=== PATIENT | male | born 1975 | race Caucasian/White ===

== ENCOUNTER 2017-03-30 21:23 | Emergency (ER) | payer OTHER ==
--- NOTE | 2017-03-30 21:55 | ED Physician Documentation ---
PD HPI BACK PAIN - Stated complaint Stated Complaint: BACK PX - Chief complaint Chief Complaint: Cardiac - History obtained from History obtained from: Patient - History of Present Illness Timing - onset: How many hours ago (2), Today Timing - duration: Minutes (about 60 minutes of pain, improved after awhile enroute here.) Timing - details: Abrupt onset, Now resolved, Constant Location: Upper, Right (he was sitting at desk typing on computer and had abrupt onset of severe tightness feeling in upper right back into right chest area, with feeling of radiation to right neck. [place] some lightheaded. Pain not pleuritic but he did feel that he was some short of breath.) Quality: Pain, Spasm, Sharp Associated symptoms: No: Fever, Weakness, Numbness, Incontinent of urine Improves with: No: Rest Worsened by: No: Movement, Palpation Contributing factors: No: Lifting, Twisting, Trauma Similar symptoms before: Has not had sx before Recently seen: Not recently seen Review of Systems Constitutional: denies: Fever, Chills Nose: denies: Rhinorrhea / runny nose, Congestion Throat: denies: Sore throat Respiratory: denies: Cough, Wheezing GI: denies: Abdominal Pain, Nausea, Vomiting, Diarrhea Skin: denies: Rash, Lesions Neurologic: reports: Near syncope. denies: Generalized weakness, Focal weakness , Numbness, Altered mental status, Headache Psychiatric: denies: Anxiety Endocrine: denies: Weight loss, Easy bruising / bleeding PD PAST MEDICAL HISTORY - Past Medical History Past Medical History: Yes Cardiovascular: Hypertension Respiratory: Sleep apnea Neuro: None Endocrine/Autoimmune: None GI: None : None HEENT: None Psych: None Musculoskeletal: None Derm: None - Past Surgical History Past Surgical History: No General: Other - Present Medications Home Medications: Ambulatory Orders Medication Instructions Recorded Confirmed Lisinopril/Hydrochlorothiazide 1 tab PO DAILY 03/30/17 03/30/17 [Lisinopril-Hctz 20-12.5 mg Tab] - Allergies Allergies/Adverse Reactions: Allergies Allergy/AdvReac Type Severity Reaction Status Date / Time No Known Drug Allergies Allergy Verified 03/30/17 21:29 - Social History Does the pt smoke?: Yes Smoking Status: Current every day smoker Does the pt drink ETOH?: Yes Does the pt have substance abuse?: No - Family History Family history: denies: Venous thromboembolism, Aortic aneursym, Aortic dissection - Immunizations Immunizations are current?: Yes - POLST Patient has POLST: No PD ED PE NORMAL - Vitals Vital signs reviewed: Yes - General General: Alert and oriented X 3, No acute distress, Well developed/nourished - HEENT HEENT: Ears normal, Pharynx benign - Neck Neck: Supple, no meningeal sign, No adenopathy - Cardiac Cardiac: RRR, No murmur - Respiratory Respiratory: Clear bilaterally - Abdomen Abdomen: Normal bowel sounds, Soft, Non tender, Non distended - Back Back: No CVA TTP - Derm Derm: Normal color, Warm and dry, No rash - Extremities Extremities: No deformity, No tenderness to palpate - Neuro Neuro: Alert and oriented X 3, rn assessment 2-12 intact, No motor deficit, No sensory deficit, Normal speech - Psych Psych: Normal mood, Normal affect Results - Vitals Vitals: Vital Signs - 24 hr 03/30/17 03/30/17 03/30/17 21:27 22:25 23:35 Temperature 36.7 C Heart Rate 89 82 75 Respiratory 94 H 16 16 Rate Blood Pressure 118/81 H 127/81 H 131/75 H O2 Saturation 97 97 96 Oxygen O2 Source Room air - EKG (time done) 21:42 Rate: Rate (enter#) (82) Rhythm: NSR [place]: Normal Intervals: Normal [place] QRS: Normal Ischemia: Normal ST segments. No: ST elevation c/w ischemia, ST depression Compare to prior EKG: Old EKG unavailable - Labs Labs: Laboratory Tests 03/30/17 03/30/17 03/30/17 22:40 22:40 22:40 WBC 7.6 RBC 5.22 Hgb 15.5 Hct 45.1 MCV 86.4 MCH 29.6 MCHC 34.3 RDW 12.9 Plt Count 224 MPV 8.2 Neut # 3.8 Lymph # 2.9 [place] # 0.6 Eos # 0.1 Baso # 0.1 Absolute Nucleated RBC 0.00 Nucleated RBC % 0.0 Sodium 135 Potassium 3.4 L Chloride 99 L Carbon Dioxide 26 Anion Gap 10.0 BUN 19 Creatinine 1.0 Estimated GFR (MDRD) 83 L Glucose 95 Calcium 9.4 Total Bilirubin 0.5 AST 39 ALT 47 Alkaline Phosphatase 51 Troponin I < 0.04 Total Protein 7.3 Albumin 4.6 Globulin 2.7 Albumin/Globulin Ratio 1.7 Lipase 33 - Rads (name of study) chest angio for aorta Radiology: Prelim report reviewed, Final report received (normal exam; no aortic process. ) PD MEDICAL DECISION MAKING - ED course Complexity details: reviewed results, considered differential (consider significant processes given the degree of pain at the time, though not hurting now: DC, PE, Aortic dissection, PTX, GB problem. Also then consider muscle spasm , esophageal spasm, biliar colic as things that will not show on tests. ), d/w patient Departure - Departure Disposition: Home, Self Care Clinical Impression: Acute thoracic back pain Qualifiers: Back pain laterality: right Qualified Code(s): M54.6 - Pain in thoracic spine Chest pain Qualifiers: Chest pain type: other chest pain Qualified Code(s): R07.89 - Other chest pain Clinical Impression: (Ruled Out): Myocardial infarction, Aortic dissection Condition: Stable Record reviewed to determine appropriate education?: Yes Instructions: ED Chest Pain Atypical Unkn Cause Follow-Up: THONG Hauser [Provider Group] Comments: Your tests here are normal which excludes significant processes such as heart attack, blood clots, aortic process, collapsed lung. I do not know the cause of the pain that you had. Consider muscular spasm among other things. Could also correspond with esophageal spasm or gallbladder spasm though does not quite sound like those. With the tests here, the serious causes are excluded. Use Tylenol or ibuprofen if recurrent episodes. Follow-up with your primary care if recurrent episodes as well.
[2017-03-30] MEDS ORDERED: SODIUM CHLORIDE 0.9% 1,000 ML IV ONE (22:30)
[2017-03-30] MEDS ORDERED: IOPAMIDOL-300 100 ML VIAL ONE (22:40)
[2017-03-30 23:10] LABS: BASOPHILS # (AUTO) 0.1 10^3/uL (0.0-0.1); BASOPHILS % (AUTO) 0.7 %; EOSINOPHILS # (AUTO) 0.1 10^3/uL (0.0-0.7); EOSINOPHILS % (AUTO) 1.9 %; HCT - HEMATOCRIT 45.1 % (42.0-52.0); HGB - HEMOGLOBIN 15.5 g/dL (14.0-18.0); LYMPHOCYTES # (AUTO) 2.9 10^3/uL (1.5-3.5); LYMPHOCYTES % (AUTO) 38.6 %; MEAN CORPUSCULAR HEMOGLOBIN 29.6 pg (27.0-31.0); MEAN CORPUSCULAR HGB CONC 34.3 g/dL (32.0-36.0); MEAN CORPUSCULAR VOLUME 86.4 fL (80.0-94.0); MEAN PLATELET VOLUME 8.2 fL (7.4-11.4); MONOCYTES # (AUTO) 0.6 10^3/uL (0.0-1.0); MONOCYTES % (AUTO) 8.4 %; NEUTROPHILS # (AUTO) 3.8 10^3/uL (1.5-6.6); NEUTROPHILS % (AUTO) 50.4 %; RED BLOOD COUNT 5.22 10^6/uL (4.70-6.10); RED CELL DISTRIBUTION WIDTH 12.9 % (12.0-15.0); UNCORRECTED WHITE BLOOD COUNT 7.6 x10^3/uL; WHITE BLOOD COUNT 7.6 x10^3/uL (4.8-10.8)
[2017-03-30] MEDS ORDERED: IOPAMIDOL-300 100 ML VIAL IVP ONE (23:20)
[2017-03-30 23:23] LABS: ALBUMIN/GLOBULIN RATIO 1.7 (1.0-2.2); BILIRUBIN,TOTAL 0.5 mg/dL (0.2-1.0); CALCIUM 9.4 mg/dL (8.5-10.3); POTASSIUM 3.4 mmol/L (3.5-5.0); TOTAL PROTEIN 7.3 g/dL (6.7-8.2)
--- NOTE | 2017-03-30 23:49 | CT Preliminary Report ---
Exam: CT Chest Angio (AORTA) IMPRESSION: Negative CT angiogram of the chest. No acute aortic syndrome. [facility] SITE ID: [id number]
--- NOTE | 2017-03-30 23:55 | CT Report ---
EXAM: CTA CHEST EXAM DATE: 03/30/2017 11:23 PM. CLINICAL HISTORY: Abrupt chest to back pain this evening.. COMPARISON: None. TECHNIQUE: Following intravenous administration of 80 mL Isovue 300, multiplanar 3D/MIP reconstructio n of the thoracic aorta was performed. In accordance with CT protocol optimization, one or more of the following dose reduction techniques w ere utilized for this exam: automated exposure control, adjustment of mA and/or KV based on patient s ize, or use of iterative reconstructive technique. FINDINGS: Vascular Structures: No aortic intramural hematoma, dissection, or aneurysm. No significant atheroscl erotic disease. Aortic branch vessels of the chest and upper abdomen are widely patent. No pulmonary emboli identified. Lungs/Pleura: No pneumonia or edema. No suspicious nodules. No effusions or pneumothorax. Mediastinum: No cardiac enlargement. No adenopathy. Upper Abdomen: Unremarkable. Other: None. IMPRESSION: Negative CT angiogram of the chest. No acute aortic syndrome. [facility] Referring Provider Line: [phone] SITE ID: [id number]
[2017-03-31 00:18] VITALS: BP 129/72
== END 2017-03-31 00:18 | disposition home or self-care (01) ==
LOC: ED 21:23
DX: M54.6 Pain in thoracic spine (principal); R07.9 Chest pain, unspecified; I10 Essential (primary) hypertension; F17.200 Nicotine dependence, unspecified, uncomplicated
CPT/HCPCS: 36415; 71275; 80053; 83690; 84484; 85025; 93005; 96360; 99283; 99284; Q9967

== ENCOUNTER 2017-06-23 12:28 | Outpatient (CLI) | payer OTHER ==
--- NOTE | 2017-06-23 15:02 | MRI Report ---
EXAM: MRI LUMBAR SPINE WITHOUT CONTRAST EXAM DATE: 06/23/2017 01:13 PM. CLINICAL HISTORY: 42-year-old with several year history of chronic low back pain and pain rating down the right leg COMPARISON: Lumbar radiograph 01/04/2007. TECHNIQUE: Multiplanar, multisequence T1-weighted and fluid-sensitive sequences of the lumbar spine f rom T12 to S1 without contrast. Other: None. FINDINGS: Spinal Cord: The conus terminates at L1. The conus medullaris and cauda equina are unremarkable. Alignment: Straightening of the normal cervical lordosis. No scoliosis or spondylolisthesis. Bone Marrow: Five [id number]-ybycwcn lumbar vertebral bodies are assumed. Mild endplate degenerative alma nge with mild loss of disk height and disk desiccation at L4-L5. Slight loss of disk height and sligh t desiccation seen at L3-L4. No acute fracture. No abnormal marrow edema or marrow replacing lesion s een. Disk Levels/Facets: T12-L1: Unremarkable. L1-L2: Unremarkable. L2-L3: Unremarkable. L3-L4: Small posterior disk bulge, ligament flavum thickening, facet disease, and prominent dorsal ep idural fat. Fluid is seen within the facets bilaterally, greater on the left. Mild spinal canal steno sis. Mild bilateral neural foraminal narrowing. L4-L5: Small left paracentral disk protrusion. The ligament of flavum thickening and arthritic facet disease. Fluid is seen within the facets bilaterally. Effacement of the left lateral recess with pote ntial contact of the traversing left L5 nerve root. Mild bilateral neuroforaminal narrowing. L5-S1: Slight posterior disk bulge. Ligament thickening and arthritic facet disease. Fluid is seen wi thin the facets bilaterally. Effacement of lateral recesses. Minimal to mild bilateral neural foramin al narrowing. Musculature: Normal. No edema or fatty atrophy. Other: The partially visualized retroperitoneum is unremarkable. IMPRESSION: 1. Straightening of the normal lumbar lordosis. 2. Multilevel degenerative changes greatest at L4-L5. L3-L4: Mild spinal canal stenosis. Mild bilateral neural foraminal narrowing. L4-L5: Small left paracentral disk protrusion. Effacement of the left lateral recess with potential c ontact of the traversing left L5 nerve root. Mild bilateral neuroforaminal narrowing. L5-S1: Effacement of lateral recesses. Minimal to mild bilateral neural foraminal narrowing. Comment: The following findings are so common in adults without low back pain that while we report th eir presence, they must be interpreted with caution and in the context of the clinical situation. (Re mari Toribio et al, Spine 2001) Prevalence of findings in patients without low back pain: Disk degeneration (any evidence): 92% Disk desiccation/T2 signal loss: 83% Disk height loss: 56% Disk bulge: 64% Disk protrusion: 32% Annular tear/high intensity zone: 38% [facility] Referring Provider Line: [phone] SITE ID: [id number]
== END 2017-06-23 12:29 | disposition home or self-care (01) ==
LOC: DI 12:28
PROVIDERS: ATTEND General Practice
DX: M51.26 Other intervertebral disc displacement, lumbar region (principal); M47.896 Other spondylosis, lumbar region; M47.897 Other spondylosis, lumbosacral region; M51.36 Other intervertebral disc degeneration, lumbar region
CPT/HCPCS: 72148

== ENCOUNTER 2018-04-13 13:16 | Outpatient (CLI) | payer OTHER ==
[2018-04-13] MEDS ORDERED: GADOBUTROL 10 MMOL/10 ML VIAL ONE (13:34)
[2018-04-13] MEDS ORDERED: GADOBUTROL 10 MMOL/10 ML VIAL IVP ONE (14:00)
--- NOTE | 2018-04-14 09:23 | MRI Report ---
Reason: HEMATURIA,UNSPECIFIED TYPE Procedure Date: 04/13/2018 Accession Number: [id number] / [id number] Procedure: MRI - Brain W/O CPT Code: FULL RESULT: EXAM: MRI BRAIN WITHOUT CONTRAST EXAM DATE: 04/13/2018 02:30 PM. CLINICAL HISTORY: Pituitary abnormality, follow-up exam COMPARISON: Prior brain MRI studies 04/10/2016 and 04/07/2014. TECHNIQUE: Multiplanar, multisequence T1-weighted and fluid-sensitive MR sequences of the brain were performed. Sequences optimized for routine brain and pituitary evaluation. Other: None. IV Contrast: Without and with 9 mL Gadavist. FINDINGS: Brain Volume: Normal for age. Parenchyma/Dura: No mass, acute infarct or hemorrhage. There is a stable 2 mm focus of increased T2 signal in the left frontal white matter, within normal limits. Ventricles/Cisterns: No hydrocephalus. No abnormal extra-axial fluid collection or hemorrhage. Orbits: Symmetric and unremarkable. Sella Turcica: There is an area of high T1 signal in the posterior pituitary measuring 9 x 5 x 5 mm in transverse dimensions. This area demonstrates low T2 signal. There is intermediate T1 signal on the fat saturation images. No definite enhancement. IAC: Symmetric and unremarkable. Vasculature: Normal signal flow void is seen in the major arterial structures at the skull base. Sinuses: No acute appearing sinus disease. Bones: No focal pathologic appearing marrow signal changes. Other: None. IMPRESSION: 1. Stable 9 mm midline posterior pituitary lesion. No evidence of mass-effect. This may represent an incidental Rathke cleft cyst or stable microadenoma. 2. Otherwise normal brain MRI. [facility]
== END 2018-04-13 13:17 | disposition home or self-care (01) ==
LOC: DI 13:16
PROVIDERS: ATTEND Student in an Organized Health Care Education/Training Program
DX: D35.2 Benign neoplasm of pituitary gland (principal)
CPT/HCPCS: 70553; A9585

== ENCOUNTER 2018-09-21 12:42 | Outpatient (CLI) | payer OTHER ==
[2018-09-21] MEDS ORDERED: GADOBUTROL 10 MMOL/10 ML VIAL ONE (13:33)
[2018-09-21] MEDS ORDERED: GADOBUTROL 10 MMOL/10 ML VIAL IVP ONE (14:18)
--- NOTE | 2018-09-21 23:20 | MRI Report ---
Reason: PITULTARY MICROADENOMA Procedure Date: 09/21/2018 Accession Number: [id number] / [id number] Procedure: MRI - Brain W/WO CPT Code: FULL RESULT: EXAM: MRI BRAIN WITHOUT AND WITH CONTRAST EXAM DATE: 09/21/2018 02:30 PM. CLINICAL HISTORY: PITUITARY MICROADENOMA. COMPARISON: PITUITARY/ BRAIN W/WO 04/07/2014 5:03 PM. TECHNIQUE: Multiplanar, multisequence T1-weighted and fluid-sensitive MR sequences of the brain were performed. Sequences optimized for routine evaluation. Other: None. IV Contrast: . FINDINGS: Brain Volume: Normal for age. Parenchyma: No acute hemorrhage, mass, or infarct. No significant white matter lesions identified. Tiny focus of T2 hyperintensity in the left centrum semiovale which is nonspecific and likely of no significance. No abnormal enhancement. Ventricles/Cisterns: No hydrocephalus. No abnormal extra-axial fluid collection or hemorrhage. Orbits: Symmetric and unremarkable. Sella Turcica: The small "nodule" in the mid to posterior aspect of the pituitary fossa/gland is unchanged. On the study today this is measured at approximately 6 mm x 6 mm. The pituitary stalk is midline. The parasellar structures are unremarkable. IAC: Symmetric and unremarkable. Vasculature: Normal signal flow void is seen in the major arterial structures at the skull base. The dural sinuses are patent and enhance normally. Sinuses: No acute sinus disease. Bones: No focal pathologic appearing marrow signal changes. Other: None. IMPRESSION: 1. Stable appearance of the small pituitary "nodule" likely representing a microadenoma. [facility]
== END 2018-09-21 12:43 | disposition home or self-care (01) ==
LOC: DI 12:42
PROVIDERS: ATTEND Internal Medicine Endocrinology, Diabetes & Metabolism
DX: D35.2 Benign neoplasm of pituitary gland (principal)
CPT/HCPCS: 70553; A9585

== ENCOUNTER 2018-10-07 20:13 | Emergency (ER) | payer OTHER ==
[2018-10-07] MEDS ORDERED: KETOROLAC 60 MG/2 ML VIAL IM STA (20:31)
[2018-10-07] MEDS ORDERED: HYDROmorphone 1 MG/ML CARPUJECT IM STA (20:31)
[2018-10-07] MEDS ORDERED: DEXAMETHASONE 10 MG/ML VIAL IM STA (20:31)
--- NOTE | 2018-10-07 20:34 | ED Physician Documentation ---
PD HPI BACK PAIN - Stated complaint Stated Complaint: LOWER BACK PX - Chief complaint Chief Complaint: Back Pain - History obtained from History obtained from: Patient - History of Present Illness Timing - onset: Today (This is a 43-year-old gentleman with chronic back pain. On a daily basis though it is pretty mild. Without specific injury he developed midline and right low back pain today radiating down into the buttock and the right leg. He is numb around the right lateral toes. He denies saddle anesthesia, fevers, or incontinence. There is minimal relief had at home with Aleve.) Review of Systems Ten Systems: 10 systems reviewed and negative Constitutional: denies: Fever, Chills Throat: reports: Reviewed and negative Cardiac: reports: Reviewed and negative Respiratory: reports: Reviewed and negative PD PAST MEDICAL HISTORY - Past Medical History Cardiovascular: Hypertension Respiratory: Sleep apnea Endocrine/Autoimmune: None GI: None : None HEENT: None Psych: None Musculoskeletal: None Derm: None - Past Surgical History Past Surgical History: No General: Other - Present Medications Home Medications: Ambulatory Orders Medication Instructions Recorded Confirmed Lisinopril/Hydrochlorothiazide 1 tab PO DAILY 03/30/17 10/07/18 [Lisinopril-Hctz 20-12.5 mg Tab] Cyclobenzaprine [Flexeril] 10 mg PO TID PRN #20 tablet 10/07/18 Hydrocodone/Acetaminophen 1 - 2 each PO Q6H PRN #14 tablet 10/07/18 [Hydrocodon-Acetaminophen 5-325] Testosterone Cypionate 200 mg IM ONCE 10/07/18 10/07/18 [Depo-Testosterone] predniSONE [Deltasone] 20 mg PO [id number] #21 tab 10/07/18 - Allergies Allergies/Adverse Reactions: Allergies Allergy/AdvReac Type Severity Reaction Status Date / Time No Known Drug Allergies Allergy Verified 10/07/18 20:17 - Social History Does the pt smoke?: Yes Smoking Status: Current every day smoker Does the pt drink ETOH?: Yes Does the pt have substance abuse?: No - Immunizations Immunizations are current?: Yes - POLST Patient has POLST: No PD ED PE NORMAL - Vitals Vital signs reviewed: Yes - General General: Alert and oriented X 3, Other (Uncomfortable with motion, sitting slightly canted over to the right) - Abdomen Abdomen: Normal bowel sounds, Soft, Non tender - Back Back: No spinal TTP - Extremities Extremities: Other (Mild numbness in a right L4-L5 distribution with Mild weakness in plantarflexion of the right foot. He has equal Achilles and patellar reflexes bilaterally and the remainder of his strength exam and sensory exam in the lower extremities is normal) - Neuro Neuro: Alert and oriented X 3, Normal speech Results - Vitals Vitals: Vital Signs - 24 hr 10/07/18 20:16 Temperature 36.3 C L Heart Rate 107 H Respiratory 20 Rate Blood Pressure 157/94 H O2 Saturation 97 Oxygen O2 Source Room air PD MEDICAL DECISION MAKING - ED course ED course: This is a 43-year-old gentleman with acute on chronic low back pain with new radiculopathy. MRI from 2017 reviewed. There is no evidence of cauda equina or infectious etiology. He was administered IM Dilaudid, Toradol and dexamethasone here and given a Vicodin prepack. Departure - Departure Disposition: Home, Self Care Clinical Impression: Sciatica Qualifiers: Laterality: right Qualified Code(s): M54.31 - Sciatica, right side Condition: Good Record reviewed to determine appropriate education?: Yes Instructions: ED Sciatica Prescriptions: Cyclobenzaprine [Flexeril] 10 mg PO TID PRN #20 tablet PRN Reason: Spasms Hydrocodone/Acetaminophen [Hydrocodon-Acetaminophen 5-325] 1 - 2 each PO Q6H PRN #14 tablet PRN Reason: pain predniSONE [Deltasone] 20 mg PO [id number] #21 tab Comments: Call your doctor to arrange a follow-up appointment, make the next available appointment. In the interim, return anytime if worse or if new symptoms develop. Your blood pressure was elevated today on check into the emergency department. This does not mean that you have hypertension, it is a common phenomenon to come to the emergency department and have elevated blood pressure. I recommend that you see your primary care physician within the week to have it rechecked when you are feeling better. Do not drink or drive while taking narcotic pain medication. Note that many narcotic pain relievers also contain Tylenol/acetaminophen. Please ensure that your total dose of acetaminophen from all sources does not exceed 3 g (3000 mg) per day. You may get constipated while on this medication. Take a stool softener such as Colace twice a day while you are on it. Also add an [id number] laxative such as senna or MiraLAX on any day that you do not have a bowel movement. If you received a narcotic pain medication or sedative while in the emergency department, do not drive for the next 24 hours.
[2018-10-07] MEDS ORDERED: HYDROcod/ACET 5/325 Prepack 4 PO STA (20:35)
[2018-10-07 20:57] VITALS: BP 119/82
== END 2018-10-07 20:58 | disposition home or self-care (01) ==
LOC: ED 20:13
DX: M54.31 Sciatica, right side (principal); R03.0 Elevated blood-pressure reading, without diagnosis of hypertension; I10 Essential (primary) hypertension; F17.200 Nicotine dependence, unspecified, uncomplicated; G89.29 Other chronic pain
CPT/HCPCS: 96372; 99283; J1170